=== PATIENT | male | born 1980 | race African-American/Black ===

== ENCOUNTER 2020-06-03 14:55 | Emergency (ER) | payer OTHER ==
[~2020-06-03] VITALS: Ht 182.9 cm; Wt 81.7 kg
[2020-06-03 16:13] LABS: ABSOLUTE NEUTROPHILS 3.1 thou/uL (1.4-8.2); BASOPHILS 0.6 % (0.0-2.0); EOSINOPHILS 0.5 % (0.0-3.0); HEMATOCRIT 40.4 % (42.0-52.0); HEMOGLOBIN 13.2 gm/dL (14.0-18.0); LYMPHOCYTES 20.9 % (24.0-44.0); MCH 30.1 pg (26.0-34.0); MCHC 32.6 g/dL (28.0-37.0); MCV 92.2 fL (80.0-100.0); MONOCYTES 8.2 % (1.0-8.0); PLATELET COUNT 366 thou/uL (150-400); POLYS 69.8 % (36.0-66.0); RBC 4.39 mil/uL (4.50-6.00); RDW 13.3 % (10.5-14.5); WBC 4.4 thou/uL (4.0-11.0)
[2020-06-03 16:22] LABS: ANION GAP 9 mmol/L (7-16); BUN 8 mg/dL (7-18); CHLORIDE 104 mmol/L (98-107); CO2 29 mmol/L (21-32); CREATININE 1.3 mg/dL (0.7-1.3); GLUCOSE 108 mg/dL (74-106); POTASSIUM 4.1 mmol/L (3.5-5.1); SODIUM 142 mmol/L (136-145)
[2020-06-03 16:33] LABS: MAGNESIUM 1.8 mg/dL (1.8-2.4); TROPONIN-I <0.06 ng/mL (<0.06)
[2020-06-03 17:10] VITALS: BP 139/88
== END 2020-06-03 17:10 | disposition left against medical advice (07) ==
LOC: ER 14:55
PROVIDERS: Emergency Medicine
DX: S60.312A Abrasion of left thumb, initial encounter (principal); S50.311A Abrasion of right elbow, initial encounter; R41.82 Altered mental status, unspecified; F17.210 Nicotine dependence, cigarettes, uncomplicated; W19.XXXA Unspecified fall, initial encounter; Y93.89 Activity, other specified; Y92.89 Other specified places as the place of occurrence of the external cause; Y99.8 Other external cause status

== ENCOUNTER 2021-06-26 11:59 | Emergency (ER) | payer BC, OTHER ==
[~2021-06-26] VITALS: Ht 182.9 cm; Wt 81.7 kg
--- NOTE | ~2021-06-26 | EMS ---
[address] [address] EMS Patient Care Report Name: MADDY DUFFY Room #: [facility].Richi#: [id number] Admission: 06/26/21 Attend Phys: Discharge: Date of : 78 Report #: [id number] THIS REPORT FOR: //name// Report Transmitted: 06/26/2021 12:28 EMS Care Summary [place], [place]/[facility] Incident [id number] @ 06/26/2021 11:25 Incident Location [address] [place] [address] / [place] [address] Patient MADDY DUFFY Male, 41 Years 1980 Patient Address [address] [address] Patient History Seizures,Substance Abuse,Bipolar II Disorder, Patient Allergies No known allergies, Patient Medications Sertraline, Gabapentin, Ziprasidone, Lamotrigine, Chief Complaint PCP overdose Disposition Transported No Lights/[place] Reason Unknown Problem/Person Down Transported To [facility] Narrative M36 dispatched on an unknown. M36 instructed to stage for PD. M36 arrived to find bystanders and PD at PT side. PT found seated on ground in hard restraints with PD. PT stated he used PCP RN GERIATRIC. PT assisted to stand and pivot to stretcher. PT calm and cooperative with EMS. PD stated PT not in custody nor [address] [address] EMS Patient Care Report Name: MADDY DUFFY Room #: [facility].#: [id number] Admission: 06/26/21 Attend Phys: Discharge: Date of : 78 Report #: [id number] under arrest. PD removed hard restraints. PT secured to stretcher with seatbelts. PT denied pain. No gross injuries or bleeding noted. PT answered some questions for EMS. PT fell asleep during transport to hospital. PT vitals monitored during transport. PT report given. PT rolled self from stretcher to hospital bed. PT care and belongings transferred to ER staff at [facility] without incident. M36 placed back in service. Initial Vitals @11:42P: 82,R: 20,BP: 134/80,Pain: 0/10,GCS: 14,SpO2: 93,Revised Trauma: 12, @11:49P: 76,R: 18,BP: 134/74,Pain: 0/10,GCS: 13,CO: 17,SpO2: 94,Revised Trauma: 12, Assessments @11:46MENTAL:Person Oriented,Event Oriented,Confused,SKIN:HEENT:LUNG SOUNDS:ABDOMEN:PELVIS//GI:EXTREMITIES:PULSE:NEURO: Impression Overdose - Unspecified Procedures @11:46ALS AssessmentResponse: UnchangedSucceeded Timeline 11:24,Call Received 11:24,Dispatch Notified 11:25,Dispatched 11:26,En Route 11:41,On Scene 11:42,At Patient 11:42,BP: 134/80 M,PULSE: 82,RR: 20 R,SPO2: 93 Ox,ETCO2: ,BG: ,PAIN: 0,GCS: 14, 11:45,Depart Scene 11:46,ALS Assessment,Response: UnchangedSucceeded, 11:49,BP: 134/74 M,PULSE: 76,RR: 18 R,SPO2: 94 Ox,ETCO2: ,BG: ,PAIN: 0,GCS: 13, 11:55,At Destination 12:10,Call Closed Disclaimer v1.1 Copyright 2020 [employer] This EMS Care Summary contains data elements from the applicable legal record (which may be displayed differently). It is designed to provide pertinent information for the following purposes: continuity of care, clinical quality, and state data reporting. The complete legal record is available to ED staff and administrators of the receiving hospital in [employer]'s Patient Tracker. All data is provided "as is."
[2021-06-26 12:00] VITALS: BP 125/66
== END 2021-06-26 12:29 | disposition home or self-care (01) ==
LOC: ER 11:59
DX: F20.9 Schizophrenia, unspecified (principal); T50.991A Poisoning by other drugs, medicaments and biological substances, accidental (unintentional), initial encounter; F17.210 Nicotine dependence, cigarettes, uncomplicated

== ENCOUNTER 2021-08-28 01:14 | Inpatient (IN) | payer BC, OTHER ==
[~2021-08-28] VITALS: Ht 180.3 cm; Wt 77.1 kg
[2021-08-28 01:25] VITALS: BP 161/68
[2021-08-28] MEDS ORDERED: SERTRALINE HCL100 MG (01:32)
[2021-08-28] MEDS ORDERED: NEURONTIN 300M300 M2 PO (01:32)
[2021-08-28] MEDS ORDERED: LAMOTRIGINE250 MG PO (01:32)
[2021-08-28] MEDS ORDERED: GEODON 80 MG CA80 MG PO (01:33)
[2021-08-28] MEDS ORDERED: ZIPRASIDONE HCL60 MG PO (01:33)
[2021-08-28 02:47] LABS: ABSOLUTE NEUTROPHILS 4.9 thou/uL (1.4-8.2); BASOPHILS 0.3 % (0.0-2.0); HEMOGLOBIN 11.4 gm/dL (14.0-18.0)
[2021-08-28 03:08] LABS: CALCIUM 8.4 mg/dL (8.5-10.1); CREATININE 1.5 mg/dL (0.7-1.3); POTASSIUM 3.2 mmol/L (3.5-5.1)
[2021-08-28 03:09] LABS: EOSINOPHILS 0.3 % (0.0-3.0); HEMATOCRIT 33.9 % (42.0-52.0); LYMPHOCYTES 23.7 % (24.0-44.0); MCH 30.7 pg (26.0-34.0); MCHC 33.7 g/dL (28.0-37.0); MCV 91.1 fL (80.0-100.0); MONOCYTES 14.7 % (1.0-8.0); PLATELET COUNT 366 thou/uL (150-400); RBC 3.72 mil/uL (4.50-6.00); RDW 12.8 % (10.5-14.5)
[2021-08-28 03:15] LABS: ALBUMIN 3.7 g/dL (3.4-5.0); TOTAL BILIRUBIN 0.4 mg/dL (0.2-1.0); TOTAL PROTEIN 6.8 g/dL (6.4-8.2)
[2021-08-28 04:30] LABS: URINE BILIRUBIN NEGATIVE (Negative); URINE BLOOD NEGATIVE (Negative); URINE CLARITY CLEAR; URINE COLOR YELLOW; URINE GLUCOSE-RANDOM* NEGATIVE (Negative); URINE KETONES NEGATIVE (Negative); URINE LEUKOCYTES-REFLEX NEGATIVE (Negative); URINE NITRITE-REFLEX NEGATIVE (Negative); URINE PROTEIN (DIPSTICK) NEGATIVE (Negative); URINE SPECIFIC GRAVITY >= 1.030 (1.005-1.035)
[2021-08-28 04:41] LABS: AMP/METHAMP Negative (Negative); BARBITURATES Negative (Negative); BENZODIAZEPINES Negative (Negative); COCAINE Negative (Negative); METHADONE Negative (Negative); OPIATES Negative (Negative); PCP POSITIVE (Negative)
[2021-08-28 22:14] VITALS: BP 138/93
[2021-08-29 04:32] VITALS: BP 123/69
[2021-08-29 06:26] LABS: CALCIUM 8.2 mg/dL (8.5-10.1); CREATININE 1.1 mg/dL (0.7-1.3); POTASSIUM 3.4 mmol/L (3.5-5.1)
[2021-08-29] MEDS ORDERED: BACTRIM DS TAB1 EACH PO (11:22)
[2021-08-29 11:33] VITALS: BP 123/69
[2021-08-29 11:37] VITALS: BP 123/69
== END 2021-08-29 11:38 | disposition home or self-care (01) | DRG 177 ==
LOC: ER 01:14 → EROBS 04:33
PROVIDERS: Emergency Medicine; Nurse Practitioner Family; ADMIT Internal Medicine; ATTEND Internal Medicine
DX: U07.1 COVID-19 (principal); G92.8 Other toxic encephalopathy; L03.113 Cellulitis of right upper limb; F31.9 Bipolar disorder, unspecified; F17.210 Nicotine dependence, cigarettes, uncomplicated; F20.9 Schizophrenia, unspecified; S50.11XA Contusion of right forearm, initial encounter; X58.XXXA Exposure to other specified factors, initial encounter; Y93.89 Activity, other specified; Y92.89 Other specified places as the place of occurrence of the external cause; Y99.8 Other external cause status; Z23 Encounter for immunization